=== PATIENT | female | born 1930 | race Caucasian/White ===

== ENCOUNTER 2016-11-17 12:50 | Day surgery (SDC) | payer MEDICARE ==
[~2016-11-17 12:50] MED LIST: CHONDR SULF 4%/HYALURONATE 3% 0.5 ML SYRINGE IO ONE; CYCLOPENTOLATE HCL 1% 40 GTTS/2 ML BOT SOLN.DROP OS SCH; D5 1/2NS 500 ML IV SCH; EPINEPHRINE 0.5 MG in BALANCED SALT IRRIG SOLN NO.2 500 ML IO ONE; FLURBIPROFEN SODIUM 0.03% 50 GTTS/2.5 ML BOT SOLN.DROP OS SCH; LIDOCAINE 4% (PRES FREE) 1 ML, BALANCED SALT IRRIG SOLN COMB2 3 ML, EPINEPHRINE 1.25 MG IO ONE; NEO/POLYMYX B SULF/DEXAMETH OP OINT 14 APPLIC/3.5 G TUBE OS ONE; PHENYLEPHRINE 2.5% OPHTH 40 GTTS/2 ML BOT SOLN.DROP OS SCH; PHENYLEPHRINE HCL 10% 100 GTTS/5 ML BOT SOLN.DROP OS PRN; PROPARACAINE HCL 0.5% 300 GTTS/BOT SOLN.DROP OS ONE
[2016-11-17] MEDS ORDERED: IV START KIT ONE (12:53)
[2016-11-17] MEDS ORDERED: SODIUM CHLORIDE 0.9% 500 ML ONE (12:53)
[2016-11-17] MEDS: FLURBIPROFEN SODIUM 0.03% 50 GTTS/2.5 ML BOT SOLN.DROP OS SCH ×2 (13:32→13:37)
[2016-11-17] MEDS: CYCLOPENTOLATE HCL 1% 40 GTTS/2 ML BOT SOLN.DROP OS SCH ×2 (13:32→13:37)
[2016-11-17] MEDS: PHENYLEPHRINE 2.5% OPHTH 40 GTTS/2 ML BOT SOLN.DROP OS SCH ×2 (13:32→13:38)
[2016-11-17] MEDS ORDERED: MIDAZOLAM HCL 1 MG/ML 2ML VIAL ONE (14:00)
[2016-11-17] MEDS ORDERED: POVIDONE-IODINE 5% OPHTH SOLN 600 GTTS/BOT SOLN.DROP ONE (14:33)
--- NOTE | 2016-11-18 08:25 | OP ---
Kay Alfaro [id number] DATE OF SURGERY: 11/17/2016 SURGEON: Hayder Arrieta M.D. PREOPERATIVE DIAGNOSIS: Cataract OS. POSTOPERATIVE DIAGNOSIS: Pseudophakia OS. PROCEDURE: Cataract extraction and intraocular lens implantation OS. ANESTHESIA: Monitored anesthesia care. DESCRIPTION: After proper informed consent and brief history and physical performed patient brought to the operating room and placed in the supine position on the operating room table. Patient then prepped and draped in the usual sterile fashion. A speculum placed in the eyelids of the left eye. A Keratome blade was used to make a clear corneal incision in the temporal cornea. Non-preserved lidocaine injected into the anterior chamber. Viscoelastic then injected into the anterior chamber. A super sharp blade used to make paracentesis. A bent needle system used to begin capsulorrhexis which was completed Utrata forceps. Balanced salt solution (BSS) on a cannula used to hydrodissect and hydrodelineate the lens, nucleus, and cortex. The lens and nucleus was removed using Phacoemulsification hand piece using a modified chopping technique. The cortex was then removed using the irrigation and aspiration hand piece. Viscoelastic injected into the anterior chamber into the capsular bag. Intraocular lens SN60WF, 25.5 diopter power was then injected in the capsular bag and rotated into place. Viscoelastic was removed using the phacoemulsification handpiece. Balanced salt solution (BSS) on a cannula was used to reinflate the anterior chamber and hydrate the wound. The patient tolerated the procedure well without complication. JOB: [id number]
== END 2016-11-17 15:40 | disposition home or self-care (01) ==
LOC: SDC 12:50
PROVIDERS: ATTEND Ophthalmology
PROC: 08RK3JZ Replacement of Left Lens with Synthetic Substitute, Percutaneous Approach (ICD-10-PCS; principal; 2016-11-17)
DX: H25.12 Age-related nuclear cataract, left eye (principal); I12.9 Hypertensive chronic kidney disease with stage 1 through stage 4 chronic kidney disease, or unspecified chronic kidney disease; N18.9 Chronic kidney disease, unspecified; M19.90 Unspecified osteoarthritis, unspecified site; G62.9 Polyneuropathy, unspecified; K21.9 Gastro-esophageal reflux disease without esophagitis; F32.9 Major depressive disorder, single episode, unspecified; F03.90 Unspecified dementia, unspecified severity, without behavioral disturbance, psychotic disturbance, mood disturbance, and anxiety; J44.9 Chronic obstructive pulmonary disease, unspecified; J45.909 Unspecified asthma, uncomplicated; F41.9 Anxiety disorder, unspecified; D64.9 Anemia, unspecified; Z98.41 Cataract extraction status, right eye; Z96.1 Presence of intraocular lens
CPT/HCPCS: 66984; J2250; J7040; J0171; V2630